=== PATIENT | male | born 1980 | race Caucasian/White ===

== ENCOUNTER 2018-03-20 08:27 | Emergency (ER) | END 2018-03-20 10:27 | disposition home or self-care (01) ==

== ENCOUNTER 2018-07-18 12:45 | Emergency (ER) | END 2018-07-18 16:17 | disposition home or self-care (01) ==

== ENCOUNTER 2019-04-14 13:52 | Emergency (ER) | payer OTHER ==
[~2019-04-14] VITALS: Ht 177.8 cm; Wt 80.0 kg
[~2019-04-14 13:52] MED LIST: ACET500C5 PO; HYDR-4011 PO; IBUP-1542 PO; ONDA4TAB14 PO
[2019-04-14 13:57] VITALS: BP 143/87; PULSE 87; RESP 18; Ht 177.8 cm; Wt 80.0 kg
--- NOTE | 2019-04-14 15:37 | ERD ---
ER Documentation Chief Complaint Chief Complaint LEFT MIDDLE FINGER INFECTION/ GROWTH? X 3 WEEKS HPI This is a 38-year-old male presents to ED with growth on left distal middle finger that is been present for the past 3 weeks. Patient admits to some bleeding from the prescription. Denies any trauma or injury. Denies fevers, chills, tingling, numbness, lack sensation in all other symptoms. ROS All systems reviewed and are negative except as per history of present illness. Medications Home Meds Active Scripts Ondansetron (Ondansetron Odt) 4 Mg Tab.rapdis, 4 MG PO Q6H PRN for NAUSEA AND/OR VOMITING, #10 TAB Prov:CAL MALAVE-C 07/18/18 Acetaminophen* (Tylophen*) 500 Mg Capsule, 1 CAP PO Q6H PRN for PAIN AND OR ELEVATED TEMP, #20 CAP Prov:CAL MALAVE-C 07/18/18 Ibuprofen* (Motrin*) 600 Mg Tab, 600 MG PO Q6, #30 TAB Prov:CAL MALAVE-C 03/04/18 Hydrocodone/Acetaminophen ([place] 5-325 Tablet) 1 Each Tablet, 1 TAB PO Q6H PRN for PAIN, #7 TAB Prov:CAL MALAVE-C 03/04/18 Allergies Allergies: Coded Allergies: No Known Allergy (Unverified , 03/20/18) PMhx/Soc Hx Alcohol Use: No Hx Substance Use: No Hx Tobacco Use: No FmHx Family History: No diabetes Physical Exam Vitals Vital Signs Date Temp Pulse Resp B/P (MAP) Pulse Ox O2 O2 Flow FiO2 Time Delivery Rate 04/14/19 98.1 87 18 143/87 99 13:57 (105) Physical Exam Const: No acute distress Head: Atraumatic Eyes: Normal Conjunctiva ENT: Normal External Ears, Nose and Mouth. Skin: No petechiae or rashes, there is a papular growth on patient's left distal third digit, scant bleeding noted Ext: No cyanosis, or edema Neur: Awake and alert Psych: Normal Mood and Affect Procedures/MDM ER COURSE: The patient was stable throughout ED course. I kept the patient and/or family informed of laboratory and diagnostic imaging results throughout the emergency room course. The patient was promptly evaluated and a treatment plan was devised based on H&P and other data. This plan was discussed with the patient who agreed and had no further questions or concerns prior to discharge. MEDICAL DECISION MAKING: This is a 38-year-old male presents ED with growth on left distal third digit x3 weeks. Physical examination is remarkable for what appears to be a pyogenic granuloma. Patient was advised to follow-up with dermatology to have growth biopsied / removed. No evidence of felon, deep tracking infection, sepsis,, STS, TEN, Lyme's disease, syphilis, [place]rero spotted fever, shingles, disseminated gonorrhea chlamydia, DIC, TTP, ITP, sepsis, necrotizing fasciitis, gangrene, or other emergent condition. Patient's vitals are stable and can be managed with outpatient close follow-up. Advised patient to follow-up with her primary care in the next 48 hours. Advised patient return to ED with any worsening symptoms. DISPOSITION PLAN: We discussed follow up with the patient's primary care doctor within 24 to 48 hours. Patient counseled regarding my diagnostic impression and care plan. Prior to discharge all questions answered. Pt agrees with treatment plan and understands strict return precautions. Precautionary instructions provided including instructions to return to the ER if not improving or for any worsening or changing symptoms or concerns. ExitCare instructions provided. Prior to discharge, patients vital signs have been reviewed SPECIALIST FOLLOW UP RECOMMENDED: dermatology Patient has been advised to follow up with primary care in 1-2 days. Disclaimer: Inadvertent spelling and grammatical errors are likely due to EHR/dictation software use and do not reflect on the overall quality of patient care. Also, please note that the electronic time recorded on this note does not necessarily reflect the actual time of the patient encounter. Blood Pressure Assessment: Patient's blood pressure was elevated (>120/80) but appears stable without evidence of hypertension emergency or urgency. The patient was counseled about the risks of hypertension and urged to pursue outpatient monitoring and therapy within a week with their primary care physician. Departure Diagnosis: Primary Impression: Pyogenic granuloma of skin Condition: Stable Patient Instructions: Pyogenic Granuloma Referrals: ALVIN LANE MD,CHELSI BISHOP,MARIBELL WATTS,IKE HOLT,BETH CARDOZO,MOMO TANNER,MOMO Mclaughlin [facility] YOU HAVE RECEIVED A MEDICAL SCREENING EXAM AND THE RESULTS INDICATE THAT YOU DO NOT HAVE A CONDITION THAT REQUIRES URGENT TREATMENT IN THE EMERGENCY DEPARTMENT. FURTHER EVALUATION AND TREATMENT OF YOUR CONDITION CAN WAIT UNTIL YOU ARE SEEN IN YOUR DOCTORS OFFICE WITHIN THE NEXT 1-2 DAYS. IT IS YOUR RESPONSIBILITY TO MAKE AN APPOINTMENT FOR FOLOW-UP CARE. IF YOU HAVE A PRIMARY DOCTOR --you should call your primary doctor and schedule an appointment IF YOU DO NOT HAVE A PRIMARY DOCTOR YOU CAN CALL OUR PHYSICIAN REFERRAL HOTLINE AT IF YOU CAN NOT AFFORD TO SEE A PHYSICIAN YOU CAN CHOSE FROM THE FOLLOWING [facility] [address] [facility] [address] [facility] [facility] [address] [facility] [address] [facility] [address] [facility] [facility] [address] Additional Instructions: Patient advised to return to the ED immediately for new or worsening symptoms. Patient advised to follow up with primary care provider in the next 24-48 hours. Patient verbalized understanding and agrees with treatment plan and course of action. If patient has no primary care they may follow up with one of the [facility] listed on the following page or one of the options listed below [facility] [address] [place] [id number] or [facility] [address] [place] [address] or [facility] [address] [place] [address] CHRISTI PERALES PA-C Apr 14, 2019 15:37
== END 2019-04-14 15:53 | disposition home or self-care (01) ==
LOC: FTE 13:52
DX: L98.0 Pyogenic granuloma (principal)
CPT/HCPCS: 99282